=== PATIENT | male | born 1970 | race Caucasian/White ===

== ENCOUNTER → 2024-10-08 11:33 | Outpatient (REF) | payer BC, SELFPAY | LOC: DHCBC/DCA 11:33 | PROVIDERS: ATTENDING PHYSICIAN Internal Medicine Cardiovascular Disease; FAMILY PHYSICIAN Family Medicine | DX: R06.02 Shortness of breath (principal) | CPT/HCPCS: 78452; 93017; A9500 ==

== ENCOUNTER → 2024-10-30 06:06 | Outpatient (REF) | payer BC, SELFPAY | LOC: EMG 06:06 | PROVIDERS: ATTENDING PHYSICIAN Orthopaedic Surgery Hand Surgery; FAMILY PHYSICIAN Family Medicine | DX: M25.521 Pain in right elbow (principal); R20.0 Anesthesia of skin | CPT/HCPCS: 95886; 95911 ==